=== PATIENT | female | born 1990 | race Caucasian/White ===

== ENCOUNTER 2021-08-30 19:21 | Inpatient (IN) ==
[2021-08-30] MEDS ORDERED: BUTORPHANOL 1 MG/ML VIAL IV PRN (19:35)
[2021-08-30] MEDS ORDERED: METHYLERGONOVINE 0.2 MG/1 ML AMP IM PRN (19:35)
[2021-08-30] MEDS ORDERED: OXYTOCIN/LR 20 UNIT/1,000 ML BAG IV ONE (19:35)
[2021-08-30] MEDS ORDERED: LACTATED RINGERS 500 ML IV PRN (19:35)
[2021-08-30] MEDS ORDERED: ACETAMINOPHEN 325 MG TABLET PO PRN (19:35)
[2021-08-30] MEDS ORDERED: ONDANSETRON 4 MG/2 ML VIAL IV PRN (19:35)
[2021-08-30] MEDS ORDERED: MEPERIDINE 50 MG/1 ML VIAL IV PRN (19:35)
[2021-08-30] MEDS ORDERED: BUTORPHANOL 2 MG/ML VIAL IV PRN (19:35)
[2021-08-30] MEDS ORDERED: CARBOPROST TROMETHAMINE 250 MCG/ML AMP IM PRN (19:35)
[2021-08-30] MEDS ORDERED: TRANEXAMIC ACID 1,000 MG in SODIUM CHLORIDE 0.9% 100 ML IV PRN (19:35)
[2021-08-30] MEDS ORDERED: LACTATED RINGERS 250 ML IV ONE (19:35)
[2021-08-30] MEDS ORDERED: miSOPROStoL 200 MCG TABLET RECTAL PRN (19:35)
[2021-08-30 20:02] LABS: Basophils % 0.3 % (0.0-0.8); Eosinophils # 0.2 10*3/uL (0.0-0.87); Eosinophils % 1.4 % (0.00-10.9); Hematocrit 37.5 VOL% (35.7-47.0); Hemoglobin 12.7 GM/DL (12.0-16.0); Immature Granulocytes % 0.6 %; Immature Granulocytes Absolute 0.07 #; Lymphocytes # 2.4 10*3/uL (1.4-4.0); Lymphocytes % 20.6 % (21.3-54.2); Mean Corpuscular HGB Conc 33.9 GM/DL (32-36); Mean Corpuscular Volume 92.1 FL (87-102); Mean Platelet Volume 10.9 FL (9.6-12.0); Monocytes # 0.8 10*3/uL (0.11-0.8); Monocytes % 6.4 % (1.7-12.7); Neutrophils % 70.7 % (38.7-73.9); Platelet Count 286 T/CUMM (130-400); Red Blood Count 4.07 MC/CUMM (3.8-5.5); Red Cell Distribution Width 12.5 % (9.3-17.3); White Blood Count 11.8 T/CUMM (4-12)
[2021-08-30] MEDS: CLINDAMYCIN INJ 900 MG/50 ML PREMIX IV SCH (20:56)
[2021-08-30] MEDS: LACTATED RINGERS 1,000 ML IV SCH (20:56)
[2021-08-31] MEDS: CLINDAMYCIN INJ 900 MG/50 ML PREMIX IV SCH ×3 (04:56→21:16)
[2021-08-31 08:15] LABS: INR 0.9; PT Patient Result 9.9 SECS (10.5-12.0); Partial Thromboplastin Time 24.2 SECS (23.8-32.1)
[2021-08-31 08:23] LABS: Alanine Aminotransferase 19 U/L (13-56); Albumin 2.6 G/DL (3.4-5.0); Alkaline Phosphatase 110 U/L (45-117); Aspartate Amino Transferase 18 U/L (0-37); Bilirubin,Direct < 0.100 MG/DL (0.0-0.20); Bilirubin,Total < 0.39 MG/DL (0.20-1.00); Blood Urea Nitrogen 9 MG/DL (7-18); Calcium 9.3 MG/DL (8.5-10.1); Carbon Dioxide 25 MMOL/L (21-32); Chloride 108 MMOL/L (98-107); Glucose 90 MG/DL (74-106); Osmolality,Calculated 273.7 MOS/KG (273-304); Potassium 4.1 MMOL/L (3.5-5.1); Sodium 138 MMOL/L (136-145); Total Protein 7.2 G/DL (6.4-8.2); Uric Acid 3.8 MG/DL (2.6-6.0)
[2021-08-31] MEDS: amLODIPine 10 MG TABLET PO SCH (08:59)
[2021-08-31] MEDS ORDERED: LABETALOL 200 MG TABLET PO SCH (09:00)
[2021-08-31] MEDS ORDERED: TERBUTALINE 1 MG/1 ML VIAL SUBCUT PRN (16:39)
[2021-08-31] MEDS: LABETALOL 200 MG TABLET PO SCH (16:42)
[2021-08-31] MEDS: LACTATED RINGERS 1,000 ML IV SCH (17:08)
[2021-09-01] MEDS: LABETALOL 200 MG TABLET PO SCH ×3 (01:51→18:31)
[2021-09-01] MEDS ORDERED: OXYTOCIN/LR 20 UNIT/1,000 ML BAG IV SCH (04:30)
[2021-09-01] MEDS: CLINDAMYCIN INJ 900 MG/50 ML PREMIX IV SCH ×2 (04:40→15:09)
[2021-09-01] MEDS: amLODIPine 10 MG TABLET PO SCH (08:45)
[2021-09-01] MEDS: LACTATED RINGERS 1,000 ML IV SCH ×2 (08:47→13:46)
[2021-09-01] MEDS ORDERED: hydrOXYzine HCL 25 MG/1 ML VIAL IM PRN (12:47)
[2021-09-01] MEDS ORDERED: CITRIC ACID/SODIUM CITRATE 30 ML UDCUP PO ONE (12:47)
[2021-09-01] MEDS ORDERED: diphenhydrAMINE 50 MG/1 ML VIAL IV PRN ×2 (12:47)
[2021-09-01] MEDS ORDERED: LACTATED RINGERS 1,000 ML IV ONE (12:47)
[2021-09-01] MEDS ORDERED: FAMOTIDINE 20 MG/2 ML VIAL IV ONE (12:47)
[2021-09-01] MEDS ORDERED: NALOXONE 0.4 MG/ML VIAL IV PRN (12:47)
[2021-09-01] MEDS ORDERED: ePHEDrine 50 MG/ML VIAL IV PRN (12:47)
[2021-09-01] MEDS ORDERED: PROMETHAZINE 25 MG/1 ML VIAL IM ONE (12:47)
[2021-09-01] MEDS ORDERED: fentaNYL 2 MCG/ROPIV 0.2% EPID 100 ML EPIDURAL SCH (13:00)
[2021-09-01] MEDS ORDERED: miSOPROStoL 200 MCG TABLET ONE (16:47)
[2021-09-01] MEDS ORDERED: OXYTOCIN/LR 20 UNIT/1,000 ML BAG IV ONE (16:48)
[2021-09-01] MEDS ORDERED: TRANEXAMIC ACID 1,000 MG/10 ML VIAL ONE (16:48)
[2021-09-01] MEDS ORDERED: SODIUM CHLORIDE 0.9% 0 ML IV ONE (16:48)
[2021-09-01] MEDS ORDERED: METHYLERGONOVINE 0.2 MG/1 ML AMP ONE (16:48)
[2021-09-01] MEDS ORDERED: CARBOPROST TROMETHAMINE 250 MCG/ML AMP IM ONE (16:49)
[2021-09-01] MEDS ORDERED: LIDOCAINE MPF 2% /EPI 20 ML VIAL ONE (17:04)
[2021-09-01] MEDS ORDERED: OXYTOCIN 10 UNIT/ML VIAL ONE (17:39)
[2021-09-01] MEDS ORDERED: PHENYLEPHRINE 1 MG/10 ML SYRINGE IV ONE (17:41)
[2021-09-01 17:43] LABS: Cord Arterial Blood HCO3 23.1 MMOL/L
[2021-09-01 17:45] LABS: Cord Venous Blood HCO3 23.8 MMOL/L; Cord Venous Blood PCO2 49.8 MMHG; Cord Venous Blood PO2 25.4
[2021-09-01] MEDS ORDERED: buprenorphine HCL 0.3 MG/ML VIAL ONE (17:47)
[2021-09-01] MEDS: ACETAMINOPHEN 500 MG TABLET PO SCH (23:47)
[2021-09-01] MEDS: KETOROLAC 30 MG/1 ML VIAL IV SCH (23:48)
[2021-09-02] MEDS: CLINDAMYCIN INJ 900 MG/50 ML PREMIX IV SCH ×2 (00:01→10:19)
[2021-09-02] MEDS: LABETALOL 200 MG TABLET PO SCH ×3 (01:16→16:39)
[2021-09-02 05:39] LABS: Basophils # 0.1 10*3/uL (0.0-0.2); Basophils % 0.3 % (0.0-0.8); Eosinophils # 0.1 10*3/uL (0.0-0.87); Eosinophils % 0.5 % (0.00-10.9); Hemoglobin 11.8 GM/DL (12.0-16.0); Immature Granulocytes % 0.8 %; Immature Granulocytes Absolute 0.12 #; Lymphocytes # 2.7 10*3/uL (1.4-4.0); Lymphocytes % 17.8 % (21.3-54.2); Mean Corpuscular HGB Conc 33.7 GM/DL (32-36); Mean Corpuscular Volume 93.3 FL (87-102); Mean Platelet Volume 11.5 FL (9.6-12.0); Monocytes % 6.7 % (1.7-12.7); Neutrophils % 73.9 % (38.7-73.9); Platelet Count 226 T/CUMM (130-400); Red Blood Count 3.75 MC/CUMM (3.8-5.5); Red Cell Distribution Width 12.7 % (9.3-17.3); White Blood Count 15.4 T/CUMM (4-12)
[2021-09-02] MEDS ORDERED: oxyCODONE/ACETAMINOPHEN 5-325 MG TABLET PO PRN ×2 (06:26)
[2021-09-02] MEDS: ACETAMINOPHEN 500 MG TABLET PO SCH ×2 (06:28→14:09)
[2021-09-02] MEDS: KETOROLAC 30 MG/1 ML VIAL IV SCH ×3 (06:41→18:52)
[2021-09-02] MEDS: DOCUSATE SODIUM 100 MG CAPSULE PO SCH ×2 (10:07→21:13)
[2021-09-02] MEDS: amLODIPine 10 MG TABLET PO SCH (10:08)
[2021-09-02] MEDS ORDERED: CLINDAMYCIN INJ 900 MG/50 ML PREMIX IV SCH (10:30)
[2021-09-02] MEDS: IBUPROFEN 800 MG TABLET PO PRN ×2 (16:40→22:32)
[2021-09-02] MEDS ORDERED: SIMETHICONE CHEW 80 MG TABLET PO PRN (21:04)
[2021-09-02] MEDS ORDERED: MAGNESIUM HYDROXIDE SUSP 30 ML UDCUP PO PRN (21:04)
[2021-09-03] MEDS: LABETALOL 200 MG TABLET PO SCH ×2 (01:17→09:08)
[2021-09-03] MEDS ORDERED: ACETAMINOPHEN 500 MG TABLET PO ONE (03:14)
[2021-09-03] MEDS: IBUPROFEN 800 MG TABLET PO PRN (04:19)
[2021-09-03] MEDS: DOCUSATE SODIUM 100 MG CAPSULE PO SCH (09:07)
[2021-09-03] MEDS: amLODIPine 10 MG TABLET PO SCH ×2 (09:08→09:20)
[2021-09-03 09:13] VITALS: BP 116/50
[2021-09-03] MEDS ORDERED: DIPH/TET/ACEL PERT BOOSTER VACCINE 0.5 ML VIAL IM ONE (09:58)
== END 2021-09-03 11:20 | disposition home or self-care (01) | DRG 787 ==
LOC: N.LDOUT 19:21 → N.LD 19:22 → N.OB 09-01 20:55
PROVIDERS: ADMIT Specialist; ATTEND Specialist
PROC: LDCSECT (ICD-10-PCS; 2021-09-01 17:00)